=== PATIENT | female | born 1975 | race Caucasian/White ===

== ENCOUNTER 2018-01-08 17:18 | Emergency (ER) | payer MEDICARE, MEDICAID ==
[~2018-01-08] VITALS: Ht 177.8 cm; Wt 88.0 kg
[~2018-01-08 17:18] MED LIST: ALBU18HF2 IH; BRIM15DR2 EACHEYE; CABE0.5T2 PO; CHOL100044 PO; DEXT15DR5 EACHEYE; FAMO-135 PO; FLUT1DIS3 IH; FURO20TA4 PO; GABA-290 PO; LEVO25TA7 PO; LITHTAB PO; P20 PO; PALI3TAB PO; POTA20TA82 PO; TRAM50TA3 PO; TRAZ-132 PO
[2018-01-08 19:54] LABS: BASOPHILS % 0.5 % (0.0-2.0); EOSINOPHILS % 2.5 % (0.0-5.0); HEMATOCRIT. 35.8 % (36.0-48.0); HEMOGLOBIN. 11.8 g/dL (12.0-16.0); LYMPHOCYTES % 15.3 % (20.0-50.0); MEAN CORPUSCULAR HEMOGLOBIN 27.8 pg (28.0-32.0); MEAN CORPUSCULAR VOLUME 84.4 fL (81.0-99.0); MEAN PLATELET VOLUME 9.8 fl (7.4-10.4); MONOCYTES % 7.1 % (2.0-8.0); NEUTROPHILS % 74.6 % (40.0-76.0); PLATELET 275 x1000/uL (130-400); RED BLOOD CELL COUNT 4.25 mill/uL (4.2-5.4)
[2018-01-08 19:57] LABS: CHLORIDE 107 mEq/L (98-107)
[2018-01-08 23:01] LABS: HCG SCREEN NEGATIVE
[2018-01-09] MEDS ORDERED: IOHEXOL-300 100 ML BOTTLE ONE (01:17)
[2018-01-09 01:56] LABS: CLARITY URINE HAZY (CLEAR); COLOR URINE YELLOW (YELLOW); PROTEIN URINE NEGATIVE (NEGATIVE); SPECIFIC GRAVITY URINE 1.027 (1.005-1.030)
[2018-01-09 01:57] LABS: KETONES URINE TRACE (NEGATIVE); LEUKOCYTE ESTERASE URINE TRACE (NEGATIVE); NITRITE URINE NEGATIVE (NEGATIVE); OCCULT BLOOD URINE NEGATIVE (NEGATIVE); UROBILINOGEN URINE 0.2 E.U./dL (0.2-1.0)
[2018-01-09 02:30] VITALS: BP 138/89
== END 2018-01-09 03:00 | disposition home or self-care (01) ==
LOC: ER 17:22
DX: J04.0 Acute laryngitis (principal); J45.909 Unspecified asthma, uncomplicated; H40.9 Unspecified glaucoma; Z90.89 Acquired absence of other organs; Z86.73 Personal history of transient ischemic attack (TIA), and cerebral infarction without residual deficits; Z88.5 Allergy status to narcotic agent; Z88.8 Allergy status to other drugs, medicaments and biological substances
CPT/HCPCS: 36415; 70491; 71045; 80053; 81003; 84703; 85025; 87086; 99285; Q9967

== ENCOUNTER 2018-02-06 18:17 | Emergency (ER) | payer MEDICARE, MEDICAID ==
[~2018-02-06] VITALS: Ht 157.5 cm; Wt 90.0 kg
[2018-02-06 18:52] LABS: CHLORIDE 108 mEq/L (98-107)
[2018-02-06 18:53] LABS: HEMATOCRIT. 36.3 % (36.0-48.0); HEMOGLOBIN. 12.3 g/dL (12.0-16.0); MEAN CORPUSCULAR HEMOGLOBIN 27.3 pg (28.0-32.0); MEAN CORPUSCULAR VOLUME 80.8 fL (81.0-99.0); PROTHROMBIN TIME 10.6 sec (9.4-11.6); RED CELL DISTRIBUTION WIDTH 14.3 % (11.6-14.6)
[2018-02-06 19:20] LABS: T4 FREE 1.3 ng/dL (0.76-1.46)
[2018-02-06 19:43] LABS: MEAN PLATELET VOLUME 10.8 fl (7.4-10.4); PLATELET 233 x1000/uL (130-400)
[2018-02-06 19:45] LABS: PLATELET ESTIMATE NORMAL
[2018-02-06] MEDS ORDERED: KETOROLAC 15MG/ML VIAL IV NR (20:15)
[2018-02-06 22:05] VITALS: BP 150/83
== END 2018-02-06 22:08 | disposition home or self-care (01) ==
LOC: ER 18:17
DX: F41.9 Anxiety disorder, unspecified (principal); F31.9 Bipolar disorder, unspecified; R07.9 Chest pain, unspecified; R06.00 Dyspnea, unspecified; H40.9 Unspecified glaucoma; J45.909 Unspecified asthma, uncomplicated; I10 Essential (primary) hypertension; R73.9 Hyperglycemia, unspecified; E87.6 Hypokalemia; Z86.73 Personal history of transient ischemic attack (TIA), and cerebral infarction without residual deficits; Z88.5 Allergy status to narcotic agent; Z88.8 Allergy status to other drugs, medicaments and biological substances
CPT/HCPCS: 36415; 71045; 80053; 83880; 84439; 84443; 84484; 85025; 85610; 93005; 96374; 99285; J1885

== ENCOUNTER 2018-03-28 13:24 | Emergency (ER) | payer MEDICARE, MEDICAID ==
[~2018-03-28] VITALS: Ht 160 cm; Wt 106.0 kg
[~2018-03-28 13:24] MED LIST changes: -TRAZ-132 PO; +TRAZ-213 PO
[2018-03-28 14:17] LABS: BASOPHILS % 0.6 % (0.0-2.0); EOSINOPHILS % 1.1 % (0.0-5.0); HEMATOCRIT. 38.1 % (36.0-48.0); HEMOGLOBIN. 12.5 g/dL (12.0-16.0); LYMPHOCYTES % 9.9 % (20.0-50.0); MEAN CORPUSCULAR HEMOGLOBIN 25.5 pg (28.0-32.0); MEAN CORPUSCULAR VOLUME 77.8 fL (81.0-99.0); MEAN PLATELET VOLUME 10.1 fl (7.4-10.4); MONOCYTES % 4.1 % (2.0-8.0); NEUTROPHILS % 84.3 % (40.0-76.0); PLATELET 230 x1000/uL (130-400); RED CELL DISTRIBUTION WIDTH 14.6 % (11.6-14.6)
[2018-03-28 14:23] LABS: CHLORIDE 105 mEq/L (98-107)
[2018-03-28] MEDS ORDERED: ONDANSETRON HCL 4MG/2ML INJ IV ONE (16:30)
[2018-03-28] MEDS ORDERED: MAGNESIUM/ALUMINUM HYDROXIDE/SIMETHICONE 30ML UDC PO ONE (16:30)
[2018-03-28] MEDS ORDERED: IPRATROPIUM/ALBUTEROL 0.5-3(2.5)MG/3ML NEB HHN ONE (16:30)
[2018-03-28] MEDS ORDERED: MORPHINE SULFATE 4 MG/ML CPJ (NOT FOR IM USE) IV ONE (16:30)
[2018-03-28] MEDS ORDERED: DIPHENHYDRAMINE 50MG/ML VIAL IV ONE (16:30)
[2018-03-28] MEDS ORDERED: KETOROLAC 30MG/ML VIAL IV ONE (16:30)
[2018-03-28] MEDS ORDERED: PREDNISONE 20MG TABLET PO ONE (16:30)
[2018-03-28] MEDS ORDERED: FAMOTIDINE 20MG/2ML VIAL IV ONE (16:30)
[2018-03-28 17:11] LABS: ETHANOL BLOOD < 10 mg/dL
[2018-03-28 17:15] LABS: CREATINE KINASE 76 IU/L (26-192)
[2018-03-28 17:19] VITALS: BP 129/86
[2018-03-28 17:50] LABS: *AMPHETAMINES SCREEN URINE NEGATIVE (NEGATIVE); *BARBITURATES SCREEN URINE NEGATIVE (NEGATIVE); *BENZODIAZEPINES SCREEN URINE NEGATIVE (NEGATIVE); *COCAINE SCREEN URINE NEGATIVE (NEGATIVE)
[2018-03-28 17:52] LABS: CANNABINOID URINE SCREEN NEGATIVE (NEGATIVE); METHADONE URINE SCREEN NEGATIVE (NEGATIVE); OPIATES URINE SCREEN NEGATIVE (NEGATIVE); PHENCYCLIDINE URINE SCREEN NEGATIVE (NEGATIVE)
== END 2018-03-28 19:05 | disposition home or self-care (01) ==
LOC: ER 13:24
DX: T43.621A Poisoning by amphetamines, accidental (unintentional), initial encounter (principal); R07.89 Other chest pain; Y92.521 Bus station as the place of occurrence of the external cause
CPT/HCPCS: 36415; 71045; 80053; 80305; 81025; 82550; 83690; 83880; 84484; 85025; 93005; 94640; 96374; 96375; 99285; G0482; J1200; J1885; J2270; J2405; J3490; J7512; J7620

== ENCOUNTER 2018-04-25 15:18 | Emergency (ER) | payer MEDICARE, MEDICAID ==
[~2018-04-25] VITALS: Ht 160 cm; Wt 104.0 kg
[2018-04-25] MEDS ORDERED: TRAMADOL 50MG TABLET PO ONE (18:00)
[2018-04-25 20:11] VITALS: BP 137/78
== END 2018-04-25 20:14 | disposition home or self-care (01) ==
LOC: ER 15:38
DX: S93.491A Sprain of other ligament of right ankle, initial encounter (principal); I10 Essential (primary) hypertension; M19.90 Unspecified osteoarthritis, unspecified site; J45.909 Unspecified asthma, uncomplicated; F20.9 Schizophrenia, unspecified; E03.9 Hypothyroidism, unspecified; H35.00 Unspecified background retinopathy; Z90.49 Acquired absence of other specified parts of digestive tract; Z88.5 Allergy status to narcotic agent; Z98.890 Other specified postprocedural states; Z87.891 Personal history of nicotine dependence; Z86.73 Personal history of transient ischemic attack (TIA), and cerebral infarction without residual deficits; X58.XXXA Exposure to other specified factors, initial encounter; Y93.89 Activity, other specified; Y92.89 Other specified places as the place of occurrence of the external cause
CPT/HCPCS: 73610; 73630; 99284

== ENCOUNTER 2022-01-06 12:02 | Emergency (ER) | payer MEDICARE, MEDICAID ==
[~2022-01-06] VITALS: Ht 182.9 cm; Wt 100.0 kg
[~2022-01-06 12:02] MED LIST changes: +POTA-204 PO; -POTA20TA82 PO; -TRAZ-213 PO; +TRAZ-252 PO
[2022-01-06] MEDS ORDERED: KETOROLAC 30MG/ML VIAL IV ONE (13:15)
[2022-01-06] MEDS ORDERED: SODIUM CHLORIDE 0.9% 1,000 ML IV ONE (13:15)
[2022-01-06 14:13] LABS: BASOPHILS % 0.4 % (0.0-2.0); EOSINOPHILS % 2.5 % (0.0-5.0); HEMATOCRIT. 41.6 % (36.0-48.0); HEMOGLOBIN. 13.8 g/dL (12.0-16.0); MEAN CORPUSCULAR HEMOGLOBIN 27.8 pg (28.0-32.0); MEAN CORPUSCULAR VOLUME 83.6 fL (81.0-99.0); MEAN PLATELET VOLUME 9.8 fl (7.4-10.4); MONOCYTES % 6.5 % (2.0-8.0); NEUTROPHILS % 68.6 % (40.0-76.0); PLATELET 272 x1000/uL (130-400); RED BLOOD CELL COUNT 4.98 mill/uL (4.2-5.4); RED CELL DISTRIBUTION WIDTH 16.4 % (11.6-14.6)
[2022-01-06 14:15] LABS: CHLORIDE 106 mEq/L (98-107)
[2022-01-06 14:17] LABS: PROTHROMBIN TIME 10.9 sec (9.6-11.0)
[2022-01-06 14:26] LABS: C REACTIVE PROTEIN QUANT 7.6 mg/L (0.0-3.0); ETHANOL BLOOD < 10 mg/dL
[2022-01-06 19:15] LABS: CLARITY URINE CLOUDY (CLEAR); COLOR URINE DARK YELLOW (YELLOW); KETONES URINE TRACE (NEGATIVE); LEUKOCYTE ESTERASE URINE 1+ (NEGATIVE); NITRITE URINE NEGATIVE (NEGATIVE); OCCULT BLOOD URINE NEGATIVE (NEGATIVE); PROTEIN URINE TRACE (NEGATIVE); SPECIFIC GRAVITY URINE 1.027 (1.005-1.030)
[2022-01-06 19:35] LABS: *AMPHETAMINES SCREEN URINE NEGATIVE (NEGATIVE); *BARBITURATES SCREEN URINE NEGATIVE (NEGATIVE); *BENZODIAZEPINES SCREEN URINE NEGATIVE (NEGATIVE); *COCAINE SCREEN URINE NEGATIVE (NEGATIVE); METHADONE URINE SCREEN NEGATIVE (NEGATIVE); OPIATES URINE SCREEN NEGATIVE (NEGATIVE); PHENCYCLIDINE URINE SCREEN NEGATIVE (NEGATIVE)
[2022-01-06 19:42] LABS: CANNABINOID URINE SCREEN PRESUMTIVE POSITIVE (NEGATIVE)
[2022-01-06 20:00] VITALS: BP 105/61
[2022-01-06] MEDS ORDERED: NITR-87 MT (20:43)
[2022-01-06] MEDS ORDERED: NITROFURANTOIN 100MG M/M CAPSULE PO ONE (20:45)
== END 2022-01-06 21:25 | disposition home or self-care (01) ==
LOC: ER 12:02
DX: N39.0 Urinary tract infection, site not specified (principal); Z20.822 Contact with and (suspected) exposure to COVID-19; I10 Essential (primary) hypertension; F15.10 Other stimulant abuse, uncomplicated; F12.10 Cannabis abuse, uncomplicated; Z86.73 Personal history of transient ischemic attack (TIA), and cerebral infarction without residual deficits; Z88.5 Allergy status to narcotic agent; Z88.8 Allergy status to other drugs, medicaments and biological substances
CPT/HCPCS: 36415; 71045; 80053; 80305; 80320; 81003; 83690; 83880; 84484; 85025; 85610; 85651; 86140; 87426; 93005; 96361; 96374; 99285; C9803; J1885; J7030; G0480